=== PATIENT | male | born 1995 | race Caucasian/White ===

== ENCOUNTER 2023-03-14 17:05 | Emergency (ER) | payer OTHER, SELFPAY ==
--- NOTE | ~2023-03-14 | XR_ITS ---
EXAM: XR ankle LT min 3V DATE: 03/14/2023 17:34 HISTORY: ROLLED 03/14/23. LATERAL PAIN, SWELLING. . COMPARISON: None available. FINDINGS: Normal mineralization. No fracture or dislocation. No lytic or blastic lesion. Minimal Ach illes and mild plantar enthesopathy. No erosion or periosteal change. Soft tissues within normal limi ts. IMPRESSION: No acute osseous finding in the left ankle. Reviewed, dictated and finalized at location K. ENSATION ADVISOR
[2023-03-14 17:16] VITALS: BP 146/85; PULSE 102; RESP 20; TEMP 37.1; O2SAT 97
--- NOTE | 2023-03-14 17:37 | ED.GENADULT ---
HPI - General Adult General Chief complaint: Extremity Injury, Lower Stated complaint: Left Ankle Injury Source: patient, RN notes reviewed and old records reviewed Mode of arrival: ambulatory Limitations: no limitations History of Present Illness HPI narrative: 27-year-old male patient presents to [facility] after stopping and rolling left ankle. Patient complaining of pain and had the lateral malleolus. MD complaint: Ankle injury Onset (ago): day(s) (1) Related Data Allergies Allergy/AdvReac Type Severity Reaction Status Date / Time No Known Allergies Allergy Mild Verified 08/04/08 18:24 Review of Systems Constitutional: Constitutional: Reports no additional constitutional complaints, Denies body ache(s), Denies chills, Denies fatigue, Denies fever(s) and Denies headache(s) Eyes: Eyes: Reports no additional eye complaints and Denies blurry vision ENT: Reports system reviewed and no additional complaints, except as documented, Denies vertigo, Denies dizziness, Denies ear discharge, Denies otalgia, Denies facial pain, Denies headache(s), Denies nasal congestion, Denies nasal discharge, Denies sinus pain, Denies sinus pressure and Denies sore throat Cardiovascular: Cardiovascular: Reports no additional cardiovascular complaints, Denies chest pain, Denies chest pain at rest, Denies rapid heart rate and Denies dyspnea Respiratory: Respiratory: Reports no additional respiratory complaints, Denies chest congestion, Denies cough, Denies pain on inspiration, Denies pain with cough and Denies dyspnea Gastrointestinal: Gastrointestinal: Denies abdominal pain, Denies diarrhea, Denies nausea and Denies vomiting Musculoskeletal: Comments: left ankle pain Integumentary/Breasts: Skin/Breast: Denies rash Neurologic: Reports system reviewed and no additional complaints, except as documented, Denies vertigo, Denies dizziness and Denies headache(s) Endocrine: Endocrine: Denies fatigue PMFSH Comments At the time of my signature, I reviewed and agree with the nursing past medical, surgical, social, and family history. There is no relevant family history pertinent to the patient complaint. Exam Const: General: cooperative, healthy appearing, no acute distress and well nourished Nutritional Appearance: well nourished Orientation/consciousness: patient oriented x3 Limitations: no limitations HENMT: Head: normal to inspection and normocephalic Ears: external ears normal, TM's normal bilaterally, mastoids normal and Abnormal EAC present Face/Nose/Sinus: normal facial exam Face and sinus: normal facial exam Mouth: Yes Normal oral and palatal mucosa present, Yes oropharynx normal and Yes moist mucous membranes Throat: tonsils normal, uvula midline and no uvular edema Eyes: General: appearance normal, both eyes and all related structures Sclera: sclerae normal Pupils: Equal, round and reactive pupils present Resp: Effort & Inspection: normal respiratory effort, able to speak in complete sentences, no audible wheezes, no cough, no respiratory distress and no retractions Cardio: Rate: regular rate Skin: General skin exam: normal color and no rashes or lesions noted Neuro: General: patient oriented x3 Cranial nerves: Yes Equal, round and reactive pupils present Extrem: Left lower extremity: normal capillary refill and ankle Details: tenderness Location: of the lateral malleolus; ROM normal, no warmth, no abrasions and no ecchymosis; no edema and joint enlargement noted Psych: Appearance: grossly normal Mental Status: mental status grossly normal Speech and movement: Normal speech and movement present Affect: normal affect Course Course Emergency Course: Patient is aware of diagnosis, understands and agrees to treatment plan.? Anticipatory guidance given.? Patient agrees to follow-up as directed and is aware of reasons to seek care at the emergency department. Some parts of this dictation were generated by voice recognition
== END 2023-03-14 17:56 | disposition home or self-care (01) ==
PROVIDERS: Emergency Provider Registered Nurse
DX: S93.402A Sprain of unspecified ligament of left ankle, initial encounter (principal); S96.912A Strain of unspecified muscle and tendon at ankle and foot level, left foot, initial encounter; X50.9XXA Other and unspecified overexertion or strenuous movements or postures, initial encounter
CPT/HCPCS: 73610; 99213; G0463

== ENCOUNTER 2025-02-03 11:42 | Emergency (ER) | payer OTHER, SELFPAY ==
--- NOTE | ~2025-02-03 | XR_ITS ---
EXAMINATION: XR ankle RT min 3V DATE: 02/03/2025 12:05 INDICATION: Right ankle inversion injury with lateral sided pain and swelling TECHNIQUE: Anteroposterior, oblique, mortise, and lateral views of the right ankle were obtained. COMPARISON: None. FINDINGS: Tiny calcific densities situated between the lateral process of the talus and the distal tip of the lateral malleolus. There appears to be very small cortical defect along the medial margin of the distal tip of the lateral malleolus suggesting these represent small minimally distracted avulsion fracture fragments most likely involving the proximal anterior talofibular and/or calcaneofibular ligaments. There is overlying soft tissue swelling about the lateral malleolus. Bone alignment is otherwise normal. No other fractures identified. Small plantar calcaneal spur. Joint spaces are unremarkable. No a nkle joint effusion. IMPRESSION: 1. Minimal distraction of a likely tiny avulsion fracture fragment at the medial margin of the distal tip at the lateral malleolus likely involving the the footplate of the anterior talofibular and/or calcaneofibular ligaments. Reviewed, dictated and finalized at location A. CIATE PROFESSOR OF ENGLISH IMPRESSION: 1. Minimal distraction of a likely tiny avulsion fracture fragment at the media l margin of the distal tip at the lateral malleolus likely involving the the fo otplate of the anterior talofibular and/or calcaneofibular ligaments.
[2025-02-03 11:48] VITALS: BP 124/75; PULSE 75; RESP 18; TEMP 36.3; O2SAT 99
--- OUTSIDE RECORDS SUMMARY | 2025-02-03 11:49 | XMS_ITS | Clinical Summary ---
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 No 12/13/2023 Social Connection and Isolation Panel Answer Date Recorded In a typical week, how many times do you talk on the phone with family, friends, or neighbors? Patient declined 12/13/2023 How often do you get togethe r with friends or relatives? Patient declined 12/13/2023 How often do you attend latter-day or restorationist serv ices? Patient declined 12/13/2023 Do you belong to any clubs o r organizations such as latter-day groups, unions, fraternal or athletic groups, or school groups? No 12/13/2023 How often do you attend meet ings of the clubs or organizations you belong to? Never 12/13/2023 Are you , , di vorced, , never , or living with a partner? Never 12/13/2023 AUDIT-C Answer Date Recorded Q1: How often do you have a drink containing alc ohol? Monthly or less 12/13/2023 Q2: How many drinks containi ng alcohol do you have on a typical day when you are drinking? 1 or 2 12/13/2023 Q3: How often do you have si x or more drinks on one occasion? Less than monthly 12/13/2023 Overall Financial Resource Strain (CARDIA) Answe r Date Recorded How hard is it for you to pa y for the very basics like food, housing, medical care, and heating? Hard 12/13/2023 [facility] [place] [facility] Occupat ional Health - Occupational Stress Questionnaire Answer Date Recorded Do you feel stress - tense, restless, nervous, or anxious, or unable to sleep at night because your mind is troubled all the time - these days? Very much 12/13/2023 Exercise Vital Sign Answer Date Recorde d On average, how many days pe r week do you engage in moderate to strenuous exercise (like a brisk walk)? 4 days 12/13/2023 On average, how many minutes do you engage in exercise at this level? 120 min 12/13/2023 Hunger Vital Sign Answer Date Recorded Within the past 12 months, y ou worried that your food would run out before you got the money to buy more. Often true 12/13/19 24 Within the past 12 months, t he food you bought just didn't last and you didn't have money to get more. Often true 12/13/2023 PRAPARE - Transportation Answer Date Re corded In the past 12 months, has l ack of transportation kept you from medical appointments or from getting medications? No 11/15 In the past 12 months, has l ack of transportation kept you from meetings, work, or from getting things needed for daily living? No 12/13/2023 Housing Stability Vital Sign Answer Christian e Recorded In the last 12 months, was t here a time when you were not able to pay the mortgage or rent on time? No 12/13/2023 Number of Times Moved in the Last Year Not on fi le 12/13/2023 At any time in the past 12 m [place], were you homeless or living in a half-way (including now)? No 12/13/2023 Sex and Gender Information Value Date Recorded Sex Assigned at Not on file Legal Sex Male 1:48 PM CDT Gender Identity Not on file Sexual Orientation Not on file Plan of Treatment Health Maintenance Due Date Last Done Comments Hepatitis C Virus (HCV) Screening 1996 Human Papillomavirus (HPV) Immunization (1 - 3-dose SCDM series) 12/06/2023 Influenza Immunization (#1) 11/14/202412/14, 04/20/2007, 02/13/1999, Additional history exists SARS-COV-2 Immunization ( season) 2024 05/14/2021, 09/07/2020, 08/16/2020 Respiratory Syncytial Virus (RSV) Immunization (Adult) (1 - 1-dose 75+ series) 12/06/2071 Hepatitis B Immunization Completed 998, 01/05/1997, 1996 TdaP Immunization Completed 10/05/2012, 11/27/2007 Meningococcal Immunization (ACWY) Aged Out No longer eligible based on patient's age to complete this topic Pneumococcal Immunization Combined Aged Out No longer eligible based on patient's age to complete this topic Rotavirus Immunization Aged Out No lo nger eligible based on patient's age to complete this topic Insurance [facility]
--- NOTE | 2025-02-03 11:58 | ED.LOWEXIN ---
HPI - Extremity Injury (Lower) General Chief Complaint: Extremity Injury, Lower Stated Complaint: right ankle injury Time Seen by Provider: 02/03/25 12:30 Source: patient and RN notes reviewed Mode of arrival: ambulatory Limitations: no limitations History of Present Illness HPI Narrative: 29-year-old male presents concern for ankle pain. Reports this morning he rolled the ankle causing lateral pain and swelling. He reports he took a hydrocodone he had at home for pain. He denies decreased sensation. Reports limited range of motion with flexion due to pain MD complaint: ankle injury Related Data Home Medications ?Medication ?Instructions ?Recorded ?Confirmed ?Last Taken ?Type aripiprazole 5 mg tablet mg 02/03/25 Unknown History fluoxetine 20 mg capsule mg 02/03/25 Unknown History Allergies Allergy/AdvReac Type Severity Reaction Status Date / Time No Known Allergies Allergy Mild Verified 02/03/25 11:55 Review of Systems Review of Systems: CONSTITUTIONAL: Denies malaise, chills, sweats, or fever. SKIN: Denies rash or itching, open skin, laceration, abrasion, redness, warmth MUSCULOSKELETAL: Reports left ankle pain and swelling NEUROLOGIC: Denies numbness, weakness All systems reviewed & are unremarkable except as noted in HPI and below PMFSH Comments At time of signature, agree with nursing past medical, surgical, social and family history. There is no relevant family history pertinent to the presenting complaint Exam Narrative: GENERAL: Well-appearing, well-nourished, and in no acute distress. HEAD: Normocephalic, atraumatic. EYES: PERRLA, conjunctivae clear NECK: Supple. CHEST: Speaks in full sentences. No respiratory distress. HEART: Regular rate and rhythm. Normal and equal peripheral pulses. EXTREMITIES: Left ankle, foot, digits have grossly normal strength and sensation, grossly normal range of motion. Moderate lateral ankle edema without ecchymosis. Normal sensation with sensitivity to light touch and pain. Lateral malleolar tenderness. No open wounds, no skin tenting, no devitalized tissue or atrophy, no trophic changes, no obvious deformity, alignment normal, nearby joints and structures intact. Distal pulses palpable and equal bilaterally, skin warm, dry, pink. Capillary refill less than 3 seconds. SKIN: Warm, dry, no rash. NEURO: Alert and oriented x3. PSYCH: Normal mood and affect Course Course Emergency Course: Patient is aware of diagnosis, understands and agrees to treatment plan. Anticipatory guidance given. Patient agrees to follow-up as directed and is aware of reasons to seek care at the emergency department. Portions of this record may have been created with voice recognition software Level of Care: Express Care Visit Vital Signs Vital signs: Reviewed. MDM - Extremity Injury (Lower) MDM Narrative Medical decision making narrative: The patient was evaluated by myself in the express care. History is obtained from patient who is an independent historian and physical exam was performed.? Available medical records were reviewed at this time. ? Exam findings show no acute concerns or changes; patient is non-toxic appearing and is in no distress. Patient is appropriate for outpatient treatment and follow-up. ? I have evaluated and discussed social determinants of health with the patient that could potentially impact subsequent diagnosis and treatment plans. ? Patients injury and pain is consistent with musculoskeletal etiology. No signs of neurological or vascular compromise on exam. Compartments and tissues are soft without signs of compartment syndrome. Pain is felt appropriate for further evaluation on an outpatient basis. Imaging Data My impression: Images reviewed, interpreted by radiologist, agree, see report. Radiologist's impression: EXAMINATION: XR ankle RT min 3V DATE: 02/03/2025 12:05 INDICATION: Right ankle inversion injury with lateral sided pain and swelling TECHNIQUE: Anteroposterior, oblique, mortise, and lateral views of the right ankle were obtained. COMPARISON: None. FINDINGS: Tiny calcific densities situated between the lateral process of the talus and the distal tip of the lateral malleolus. There appears to be very small cortical defect along the medial margin of the distal tip of the lateral malleolus suggesting these represent small minimally distracted avulsion fracture fragments most likely involving the proximal anterior talofibular and/or calcaneofibular ligaments. There is overlying soft tissue swelling about the lateral malleolus. Bone alignment is otherwise normal. No other fractures identified. Small plantar calcaneal spur. Joint spaces are unremarkable. No ankle joint effusion. IMPRESSION: 1. Minimal distraction of a likely tiny avulsion fracture fragment at the medial margin of the distal tip at the lateral malleolus likely involving the the footplate of the anterior talofibular and/or calcaneofibular ligaments. Critical Care Time Critical Care Time Critical Care Time: No Discharge Plan Discharge Clinical Impression: Avulsion fracture of ankle Patient Disposition: Home Condition: Stable Instructions: Avulsion Fracture (ED) Additional Instructions: Please rest, ice and elevate the affected extremity. Please take Motrin 600mg every 8 hours, as needed, for pain (take with food). You can take Tylenol for pain not relieved by ibuprofen. Follow up with Orthopedic Surgery in 1-2 days for further evaluation - please call for an appointment. Use crutches NG not bear weight on your left ankle. Please go to ER immediately for increased pain, tingling/numbness, swelling, redness, and fever Patient Language: [place] Prescriptions: No Action fluoxetine 20 mg capsule aripiprazole 5 mg tablet Follow-up/Referrals: Phil Arnold MD [Physician, Orthopedics] PHYSICIAN NOT ON STAFF,NONSTAFF [Primary Care Provider] Stand Alone Forms: Work/School Release IP Time of Disposition: 12:39
== END 2025-02-03 12:45 | disposition home or self-care (01) ==
PROVIDERS: Emergency Provider Nurse Practitioner
DX: S82.891A Other fracture of right lower leg, initial encounter for closed fracture (principal); X50.9XXA Other and unspecified overexertion or strenuous movements or postures, initial encounter; G35.D Multiple sclerosis, unspecified
CPT/HCPCS: 73610; 99214; G0463